=== PATIENT | male | born 1970 | race Caucasian/White ===

== ENCOUNTER 2019-05-07 16:40 | Emergency (ER) | payer BC ==
[~2019-05-07] VITALS: Ht 175.3 cm; Wt 88.5 kg
[~2019-05-07 16:40] MED LIST: FARXIGA10 MG PO; GLUCOPHAGE500 MG; GLYBURIDE 5 MG T5 M1; LANTUS100 UNIT/M SUBQ; OCUFLOX5 ML OPHTHALMIC; SIMVASTATIN40 MG; TOBRADEX EYE DRO5 ML OP
[2019-05-07] MEDS ORDERED: HUMALOG100 UNIT/1 SUBQ (16:51)
[2019-05-07 17:21] LABS: ABSOLUTE BASOPHILS 0.1 thou/uL (0.0-0.2); ABSOLUTE EOSINOPHILS 0.3 thou/uL (0.0-0.7); ABSOLUTE LYMPHOCYTES 1.8 thou/uL (0.8-5.3); ABSOLUTE MONOCYTES 0.5 thou/uL (0.0-1.2); ABSOLUTE NEUTROPHILS 3.8 thou/uL (1.6-8.1); BASOPHILS 0.9 %; EOSINOPHILS 4.6 %; LYMPHOCYTES 27.5 %; MCHC 33.4 g/dL (28.0-37.0); MCV 83.8 fL (80.0-100.0); MONOCYTES 8.1 %; MPV 7.9 fl. (7.2-11.1); NUCLEATED RBCS 0 /100WBC; PLATELET COUNT* 268 thou/uL (150-400); POLYS 58.9 %; RBC 5.02 mil/uL (4.50-6.00); RDW-CV 13.4 % (10.5-14.5); WBC 6.4 thou/uL (4.0-11.0)
[2019-05-07 17:27] LABS: ANION GAP 7 mmol/L (7-16); BUN 17 mg/dL (7-18); CALCIUM 8.4 mg/dL (8.5-10.1); CHLORIDE 101 mmol/L (98-107); CO2 27 mmol/L (21-32); CREATININE 1.3 mg/dL (0.6-1.3); GLUCOSE 349 mg/dL (70-99); POTASSIUM 4.5 mmol/L (3.5-5.1); SODIUM 135 mmol/L (136-145)
[2019-05-07 17:36] LABS: URINE BILIRUBIN NEGATIVE (Negative); URINE BLOOD NEGATIVE (Negative); URINE CLARITY CLEAR; URINE COLOR YELLOW; URINE GLUCOSE-RANDOM 3+ (Negative); URINE KETONES NEGATIVE (Negative); URINE LEUKOCYTES-REFLEX NEGATIVE (Negative); URINE NITRITE-REFLEX NEGATIVE (Negative); URINE PROTEIN NEGATIVE (Negative); URINE SPECIFIC GRAVITY 1.015 (1.005-1.030); URINE UROBILINOGEN 0.2 E.U./dl (0.2-1.0)
[2019-05-07 17:45] LABS: ALBUMIN 3.7 g/dL (3.4-5.0); ALKALINE PHOSPHATASE 114 U/L (46-116); LIPASE 111 U/L (73-393); NT-PRO BRAIN NAT PEPTIDE 13 pg/mL (<300); SGOT 20 U/L (15-37); SGPT 40 U/L (30-65); TOTAL BILIRUBIN 0.4 mg/dL (<0.1-1.0); TOTAL PROTEIN 6.9 g/dL (6.4-8.2); TROPONIN-I LEVEL <0.06 ng/mL (<0.06)
[2019-05-07] MEDS ORDERED: NABUMETONE 750750 M1 PO (19:13)
[2019-05-07 20:06] VITALS: BP 132/68
--- NOTE | 2019-05-08 11:47 | EKG ---
[place] [address] ELECTROCARDIOGRAM REPORT Name: PRINCE HICKS Room: [facility]#: [id number] Admission: 05/07/19 Attend Phys: Discharge: 05/07/19 Date of : 68 Report #: [id number] THIS REPORT FOR: //name// [facility] ED Test Date: 2019-05-07 Test Time: 17:01:38 Pat Name: PRINCE HICKS Department: Room: Gender: M [employer]: VICTOR MANUEL : 1970 Requested By: Corin Lechuga Order Number: [id number] MD: [employer] Measurements Intervals [place] Rate: 112 P: 40 WI: 137 QRS: 36 QRSD: 98 T: -2 QT: 331 QTc: 452 Interpretive Statements Sinus tachycardia Low voltage, precordial leads Baseline wander in lead(s) V1 No previous ECG available for comparison Electronically Signed On 05-08-2019 11:47:20 CDT by [employer] [email or web address] <ELECTRONICALLY SIGNED> By: Melisa Law MD, [facility] 05/08/19 1147 00 00 Melisa Law MD, [facility] /EPI
== END 2019-05-07 20:06 | disposition home or self-care (01) ==
LOC: M.ERS 16:40
PROVIDERS: Nurse Practitioner Family
DX: R10.13 Epigastric pain (principal); R91.8 Other nonspecific abnormal finding of lung field; E11.65 Type 2 diabetes mellitus with hyperglycemia

== ENCOUNTER 2019-05-15 18:33 | Emergency (ER) | payer BC ==
[~2019-05-15] VITALS: Ht 175.3 cm; Wt 90.7 kg
[~2019-05-15 18:33] MED LIST changes: +HUMALOG100 UNIT/1 SUBQ; +NABUMETONE 750750 M1 PO
[2019-05-15 19:43] LABS: ABSOLUTE BASOPHILS 0.1 thou/uL (0.0-0.2); ABSOLUTE EOSINOPHILS 0.3 thou/uL (0.0-0.7); ABSOLUTE LYMPHOCYTES 1.8 thou/uL (0.8-5.3); ABSOLUTE MONOCYTES 0.6 thou/uL (0.0-1.2); ABSOLUTE NEUTROPHILS 3.3 thou/uL (1.6-8.1); BASOPHILS 2.1 %; EOSINOPHILS 5.2 %; HEMATOCRIT 40.1 % (42.0-52.0); HEMOGLOBIN 13.6 gm/dL (14.0-18.0); LYMPHOCYTES 28.5 %; MCHC 33.9 g/dL (28.0-37.0); MCV 82.5 fL (80.0-100.0); MONOCYTES 10.2 %; MPV 7.6 fl. (7.2-11.1); NUCLEATED RBCS 0 /100WBC; PLATELET COUNT* 259 thou/uL (150-400); RBC 4.86 mil/uL (4.50-6.00); RDW-CV 13.7 % (10.5-14.5); WBC 6.2 thou/uL (4.0-11.0)
[2019-05-15 19:51] LABS: CALCIUM 8.4 mg/dL (8.5-10.1); CREATININE 1.2 mg/dL (0.6-1.3); POTASSIUM 4.1 mmol/L (3.5-5.1)
[2019-05-15 19:55] LABS: ALBUMIN 3.5 g/dL (3.4-5.0); TOTAL BILIRUBIN 0.4 mg/dL (<0.1-1.0); TOTAL PROTEIN 6.6 g/dL (6.4-8.2)
[2019-05-15] MEDS ORDERED: NORCO 5-325 TA1 EAC1 PO (20:07)
[2019-05-15 20:20] VITALS: BP 138/75
== END 2019-05-15 20:20 | disposition home or self-care (01) ==
LOC: M.ERS 18:33
PROVIDERS: Physician Assistant
DX: R10.11 Right upper quadrant pain (principal); T39.395A Adverse effect of other nonsteroidal anti-inflammatory drugs [NSAID], initial encounter; E11.9 Type 2 diabetes mellitus without complications; Z79.4 Long term (current) use of insulin; Y92.89 Other specified places as the place of occurrence of the external cause